=== PATIENT | female | born 1945 | race Caucasian/White ===

== ENCOUNTER → 2020-03-07 15:29 | Outpatient (CLI) | payer MEDICARE, BC, SELFPAY | PROVIDERS: Family Provider Family Medicine; PCP Family Medicine; Visit Provider Specialist | DX: R39.9 Unspecified symptoms and signs involving the genitourinary system (principal) | CPT/HCPCS: 87077; 87086; 87186 ==

== ENCOUNTER → 2024-09-27 10:20 | Outpatient (CLI) | payer MEDICARE, BC, SELFPAY ==
--- NOTE | 2024-09-27 10:23 | DI.RAD.S_ITS ---
PROCEDURE: XR LUMBAR SPINE 5V INDICATIONS: BACK PAIN TECHNIQUE: 5 views of the lumbar spine were acquired, including bilateral oblique views. COMPARISON: None. FINDINGS: Bones: 5 nonrib-bearing vertebrae are present. Mild decreased height of the lumbar vertebral bodies with some anterior wedging suggestive of mild compression fractures, age indeterminate but likely chronic, approximately 10-15% loss of height. Grade 2 spondylolysis/spondylolisthesis L5 on S1. Mild to moderate degenerative changes throughout the lumbar spine with disc space narrowing, osteophytes, facet osseous hypertrophic changes most notably at L3-4 L4-5 and L5-S1 with suspected moderate bilateral neural foraminal narrowing on oblique images. Mild levoscoliosis of the lumbar spine some of which may be artifact from positioning. Mild vascular calcifications of the aorta and iliac vessels. Large amount of stool throughout the colon in a pattern of constipation. On the frontal image a ring is noted in the midline low pelvis commonly pessary device. Surgical clips right upper quadrant status post cholecystectomy. There is normal bony alignment. No vertebral body compression fractures. No suspicious bony lesions. IMPRESSION: Degenerative changes as discussed above. Grade 2 spondylolisthesis/spondylolisthesis L5-S1. Mild decreased height of the lumbar vertebral bodies as discussed above. Other chronic findings as above. If symptoms persist or worsen, or there is high clinical suspicion of lumbar abnormality, CT or MRI could be performed. Dictated by: Estevan De La Cruz M.D. on 09/27/2024 at 11:43 Approved by: Estevan De La Cruz M.D. on 09/27/2024 at 11:46
== END ==
PROVIDERS: PCP Physician Assistant; Referring Provider Physical Medicine & Rehabilitation; Visit Provider Physical Medicine & Rehabilitation
DX: M43.17 Spondylolisthesis, lumbosacral region (principal); M47.816 Spondylosis without myelopathy or radiculopathy, lumbar region; M47.817 Spondylosis without myelopathy or radiculopathy, lumbosacral region; M47.24 Other spondylosis with radiculopathy, thoracic region; M41.9 Scoliosis, unspecified; M54.9 Dorsalgia, unspecified; Z96.0 Presence of urogenital implants; Z90.49 Acquired absence of other specified parts of digestive tract
CPT/HCPCS: 72110; 99214

== ENCOUNTER 2024-11-30 13:54 | Outpatient (CLI) | payer MEDICARE, BC, SELFPAY ==
[2024-11-30] VITALS (8 sets, daily range): BP systolic 120–183; BP diastolic 60–89; PULSE 69–73; RESP 16–20; TEMP 36.7; O2SAT 95–99
[2024-11-30] MEDS: MIDAZOLAM 2 MG/2 ML VIAL IV (15:11)
[2024-11-30] MEDS: DEXAMETHASONE 10 MG/ML VIAL 20 MG INJ (15:17)
[2024-11-30] MEDS: BUPIVACAINE 0.25% (PF) VIAL 2 ML INJ (15:17)
[2024-11-30] MEDS: iopamidoL 15 ML VIAL 3 ML INJ (15:18)
--- NOTE | 2024-11-30 15:33 | P.PCN_ITS ---
Date/Time/Diagnoses Date of procedure: 11/30/24 Time of procedure: 15:33 Pre-procedure diagnosis: Thoracic stenosis with HNP Post-procedure diagnosis: same Procedure Notes Procedure: Fluoroscopic guided, contrast controlled T10/11 translaminar epidural steroid injection with conscious sedation. Indications: Debbie is referred by [facility] for treatment of thoracic DDD/DJD with radiculopathy Physician: Abdirashid Raymond Total Fluoroscopy time (seconds): 7 Total sedation minutes: 16 Complications: none Procedure in detail & Post-procedure care: DESCRIPTION OF PROCEDURE Fluoroscopic guided, contrast controlled T8-9 translaminar epidural steroid injection with conscious sedation. Following review of allergy review potential side effects and complications, including, but not necessarily limited to, infection, allergic reaction, local tissue breakdown, temporary as well as permanent nerve injury, stroke, paralysis and possible , the patient indicated that they understood and agreed to proceed. An informed consent document was signed by the patient, witnessed by the nurse, and placed in the patient's chart. Additionally other treatment options including modalities, medications and physical therapy were reviewed with the patient. After review of previous anaesthesic history and IV conscious sedation the patient was deemed safe to proceed with today's procedure with IV conscious sedation as ASA class II designation. Safety time-out was performed to confirm patient ID, procedure to be performed and site of procedure. IV sedation was accomplished with a combination of 2mg of Versed administered by the RN after DO order, titrated to patient comfort during the course of the procedure while the patient remained responsive to all verbal commands In the prone position, following sterile prep and drape of the thoracic region the T8-9 translaminar space was identified fluoroscopically. The skin was anesthetized via 25 gauge 1.5inch needle with 1% lidocaine solution. At this point a 22gauge epidural needle was atraumatically introduced and advanced under fluoroscopic guidance into the region of the T8-9 translaminar space depth was confirmed on lateral view. Radiographic data, including multiple fluoroscopic views of the thoracic spine, reveals spinal needle at the T8-9 translaminar space. Lateral views then showed the placement of the needle in the epidural space. Subsequent view show contrast material flowing superiorly and inferiorly in the epidural space. No vascular or intrathecal uptake is observed. At this point using loss of resistance technique with saline and the epidural space was entered. This was confirmed followed negative aspiration and injection of approximately 1.5cc of Isovue 200 showed excellent epidural flow without vascular or intrathecal uptake. At this point, 1cc of 0.25%marcaine solution was admitted as a test dose and the patient was observed for an appropriate period of time without signs or symptoms of complications, including abdominal pain, shortness of breath, bilateral upper and lower extremity weakness, nausea and vomiting, prior to steroid injection. Subsequently, 2cc or 20mg of dexamethasone was then injected without incident. The patient tolerated the procedure well without signs of complications and subsequently was transferred to the recovery room for further monitoring. The patient was then transferred to the recovery area with their observed for an appropriate time after the injection. Patient reported a VAS score of 7 prior to the procedure and post-procedure VAS of 2.
== END 2024-11-30 15:50 | disposition home or self-care (01) ==
LOC: RAD 13:55
PROVIDERS: PCP Physician Assistant; Referring Provider Physical Medicine & Rehabilitation; Visit Provider Physical Medicine & Rehabilitation
DX: M48.04 Spinal stenosis, thoracic region (principal); M51.14 Intervertebral disc disorders with radiculopathy, thoracic region; M47.24 Other spondylosis with radiculopathy, thoracic region
CPT/HCPCS: 62321; 99152; J1100; J2250